=== PATIENT | female | born 1980 | race Caucasian/White ===

== ENCOUNTER → 2016-06-10 | Outpatient (CLI) | payer MEDICAID ==
[~2016-06-10] MED LIST: FURO20TA3 PO; LISI10TA6 PO; METO-169 PO; METO2.5T11 PO; SPIR25TA89 PO; TEMA30CA PO
[2016-06-10 11:12] LABS: INR 1.5 (0.7-1.3); Prothrombin Time 18.2 sec (9.0-12.0)
[2016-06-10 11:25] VITALS: BP 116/83
[2016-06-10 16:52] LABS: Potassium 3.6 mmol/L (3.5-5.1)
== END | disposition home or self-care (01) ==
LOC: CHF HDHVI 10:28
PROVIDERS: ATTEND Internal Medicine Cardiovascular Disease
DX: I50.9 Heart failure, unspecified (principal); Z79.899 Other long term (current) drug therapy
CPT/HCPCS: 36415; 82565; 84132; 84520; 85610; 93701; G0463

== ENCOUNTER → 2016-06-19 | Outpatient (CLI) | payer MEDICAID ==
[2016-06-19 11:31] LABS: INR 4.2 (0.7-1.3); Prothrombin Time 50.6 sec (9.0-12.0)
[2016-06-19 12:20] VITALS: BP 111/92
== END | disposition home or self-care (01) ==
LOC: CHF HDHVI 10:53
PROVIDERS: ATTEND Internal Medicine Cardiovascular Disease
DX: I11.0 Hypertensive heart disease with heart failure (principal); I25.10 Atherosclerotic heart disease of native coronary artery without angina pectoris; D64.9 Anemia, unspecified; R79.1 Abnormal coagulation profile
CPT/HCPCS: 85610; G0463

== ENCOUNTER → 2016-06-26 | Outpatient (CLI) | payer MEDICAID ==
[2016-06-26 10:05] VITALS: BP 98/77
[2016-06-26 12:21] LABS: INR 3.9 (0.7-1.3); Prothrombin Time 46.3 sec (9.0-12.0)
== END | disposition home or self-care (01) ==
LOC: CHF HDHVI 09:09
PROVIDERS: ATTEND Internal Medicine Cardiovascular Disease
DX: I11.0 Hypertensive heart disease with heart failure (principal); R79.1 Abnormal coagulation profile
CPT/HCPCS: 85610; G0463

== ENCOUNTER → 2016-07-03 | Outpatient (CLI) | payer MEDICAID ==
[2016-07-03 11:11] LABS: INR 2.5 (0.7-1.3); Prothrombin Time 29.6 sec (9.0-12.0)
[2016-07-03 11:15] VITALS: BP 120/73
== END | disposition home or self-care (01) ==
LOC: CHF HDHVI 10:26
PROVIDERS: ATTEND Internal Medicine Cardiovascular Disease
DX: I11.0 Hypertensive heart disease with heart failure (principal); I25.10 Atherosclerotic heart disease of native coronary artery without angina pectoris; R79.1 Abnormal coagulation profile; N28.9 Disorder of kidney and ureter, unspecified
CPT/HCPCS: 85610; G0463

== ENCOUNTER → 2016-07-10 | Outpatient (CLI) | payer MEDICAID ==
[2016-07-10 11:56] LABS: INR 1.8 (0.7-1.3); Prothrombin Time 21.6 sec (9.0-12.0)
[2016-07-10 12:10] VITALS: BP 125/83
[2016-07-10 16:15] LABS: Basophils # (auto) 0 uL; Basophils % (auto) 0.6 % (0.0-2.0); Eosinophils # (auto) 0.1 uL; Eosinophils % (auto) 1.3 % (0.0-7.0); Hematocrit 55.5 % (36.0-46.0); Hemoglobin 17.6 g/dL (12.2-16.2); Lymphocytes # (auto) 1.3 uL; Lymphocytes % (auto) 25.6 % (10.0-50.0); Mean Corpuscular Hemoglobin 30.8 pg (28.0-32.0); Mean Corpuscular Hgb Conc. 31.8 g/dL (32.0-36.0); Monocytes # (auto) 0.4 uL; Monocytes % (auto) 8.6 % (0.0-12.0); Neutrophils # (auto) 3.3 uL; Neutrophils % (auto) 63.9 % (37.0-80.0); Platelet Count (auto) 215 10^3/uL (140-450); Red Cell Distribution Width 14.5 % (11.6-16.0); White Blood Cell 5.1 10^3/uL (4.4-10.8)
[2016-07-10 16:31] LABS: Calcium 9.3 mg/dL (8.5-10.1); Potassium 3.5 mmol/L (3.5-5.1)
[2016-07-10 16:33] LABS: BUN/Creatinine Ratio 35.6
== END | disposition home or self-care (01) ==
LOC: CHF HDHVI 11:27
PROVIDERS: ATTEND Internal Medicine Cardiovascular Disease
DX: I10 Essential (primary) hypertension (principal); E83.40 Disorders of magnesium metabolism, unspecified; D64.9 Anemia, unspecified
CPT/HCPCS: 36415; 80048; 83735; 85025; 85610; 93701; G0463

== ENCOUNTER → 2016-07-18 | Outpatient (CLI) | payer MEDICAID ==
[2016-07-18 11:30] VITALS: BP 113/83
[2016-07-18 13:10] VITALS: BP 110/83
[2016-07-18 14:45] LABS: INR 1.9 (0.7-1.3); Prothrombin Time 22.3 sec (9.0-12.0)
== END | disposition home or self-care (01) ==
LOC: CHF HDHVI 11:43
PROVIDERS: ATTEND Internal Medicine Cardiovascular Disease
DX: I27.0 Primary pulmonary hypertension (principal); R79.1 Abnormal coagulation profile
CPT/HCPCS: 85610; 94620; G0463

== ENCOUNTER → 2016-07-24 | Outpatient (CLI) | payer MEDICAID ==
[2016-07-24 09:15] VITALS: BP 108/75
[2016-07-24 09:47] LABS: INR 1.8 (0.7-1.3); Prothrombin Time 21.6 sec (9.0-12.0)
[2016-07-24 10:05] VITALS: BP 126/79
== END | disposition home or self-care (01) ==
LOC: CHF HDHVI 09:23
PROVIDERS: ATTEND Internal Medicine Cardiovascular Disease
DX: I50.23 Acute on chronic systolic (congestive) heart failure (principal); I10 Essential (primary) hypertension; I25.10 Atherosclerotic heart disease of native coronary artery without angina pectoris; I26.99 Other pulmonary embolism without acute cor pulmonale; Z86.718 Personal history of other venous thrombosis and embolism; R79.1 Abnormal coagulation profile
CPT/HCPCS: 85610; G0463

== ENCOUNTER → 2016-07-31 | Outpatient (CLI) | payer MEDICAID ==
[~2016-07-31] MED LIST changes: +CYANOCOBALAMIN (B-12) 1000 MCG/1 ML VIAL IM ONE; +CYANOCOBALAMIN (B-12) 1000 MCG/1 ML VIAL ONE
[2016-07-31 09:15] VITALS: BP 107/86
[2016-07-31 09:51] LABS: INR 2.1 (0.7-1.3); Prothrombin Time 25.5 sec (9.0-12.0)
[2016-07-31 10:05] VITALS: BP 119/57
== END | disposition home or self-care (01) ==
LOC: CHF HDHVI 09:18
PROVIDERS: ATTEND Internal Medicine Cardiovascular Disease
DX: I50.23 Acute on chronic systolic (congestive) heart failure (principal); I25.10 Atherosclerotic heart disease of native coronary artery without angina pectoris; I10 Essential (primary) hypertension; D64.9 Anemia, unspecified; R79.1 Abnormal coagulation profile
CPT/HCPCS: 85610; 93701; 96372; G0463; J3420

== ENCOUNTER → 2016-08-07 | Outpatient (CLI) | payer MEDICAID ==
[~2016-08-07] MED LIST changes: -CYANOCOBALAMIN (B-12) 1000 MCG/1 ML VIAL IM ONE; -CYANOCOBALAMIN (B-12) 1000 MCG/1 ML VIAL ONE
[2016-08-07 11:10] VITALS: BP 110/69
[2016-08-07 11:57] LABS: INR 1.9 (0.7-1.3); Prothrombin Time 22.7 sec (9.0-12.0)
[2016-08-07 16:25] LABS: Basophils # (auto) 0 uL; Basophils % (auto) 0.6 % (0.0-2.0); Eosinophils # (auto) 0.1 uL; Hematocrit 52.3 % (36.0-46.0); Hemoglobin 17.5 g/dL (12.2-16.2); Lymphocytes # (auto) 1.4 uL; Lymphocytes % (auto) 22.2 % (10.0-50.0); Mean Corpuscular Hemoglobin 32.1 pg (28.0-32.0); Mean Corpuscular Hgb Conc. 33.4 g/dL (32.0-36.0); Mean Corpuscular Volume 96.3 fL (80.0-100.0); Mean Platelet Volume 9.7 fL (7.4-10.4); Monocytes # (auto) 0.6 uL; Monocytes % (auto) 9.8 % (0.0-12.0); Neutrophils # (auto) 4.1 uL; Neutrophils % (auto) 66.4 % (37.0-80.0); Platelet Count (auto) 251 10^3/uL (140-450); Red Cell Distribution Width 14.2 % (11.6-16.0); SUSPECT VIEW TRANSMISSION; White Blood Cell 6.2 10^3/uL (4.4-10.8)
[2016-08-07 16:40] LABS: Albumin 3.6 g/dL (3.4-5.0); BUN/Creatinine Ratio 26.7; Bilirubin, Total 1.4 mg/dL (0.2-1.0); Calcium 9.4 mg/dL (8.5-10.1); Magnesium 1.8 mg/dL (1.6-2.6); Total Protein 7.7 g/dL (6.4-8.2)
[2016-08-07 16:51] LABS: Potassium 2.8 mmol/L (3.5-5.1)
== END | disposition home or self-care (01) ==
LOC: CHF HDHVI 11:09
PROVIDERS: ATTEND Internal Medicine Cardiovascular Disease
DX: I10 Essential (primary) hypertension (principal); E83.40 Disorders of magnesium metabolism, unspecified; D64.9 Anemia, unspecified
CPT/HCPCS: 36415; 80053; 83735; 85025; 85610; G0463

== ENCOUNTER → 2016-08-22 | Outpatient (CLI) | payer MEDICAID ==
[2016-08-22 09:59] VITALS: BP 112/70
[2016-08-22 10:16] LABS: INR 1.4 (0.7-1.3); Prothrombin Time 17.2 sec (9.0-12.0)
[2016-08-22 12:42] LABS: Basophils # (auto) 0 uL; Eosinophils # (auto) 0 uL; Hemoglobin 16.5 g/dL (12.2-16.2); Lymphocytes # (auto) 1.4 uL; Mean Corpuscular Hemoglobin 31.9 pg (28.0-32.0); Mean Platelet Volume 9.5 fL (7.4-10.4); Monocytes # (auto) 0.5 uL; Neutrophils # (auto) 3.1 uL; White Blood Cell 5.1 10^3/uL (4.4-10.8)
[2016-08-22 12:50] LABS: B-Type Natriuretic Peptide 630.06 pg/mL (0-100); Temperature: 23.1 C (20.0-25.0)
[2016-08-22 12:53] LABS: Basophils % (auto) 0.8 % (0.0-2.0); Eosinophils % (auto) 0.9 % (0.0-7.0); Hematocrit 50.1 % (36.0-46.0); Lymphocytes % (auto) 27.4 % (10.0-50.0); Mean Corpuscular Volume 96.7 fL (80.0-100.0); Neutrophils % (auto) 60.9 % (37.0-80.0); Platelet Count (auto) 234 10^3/uL (140-450); Red Cell Distribution Width 14.5 % (11.6-16.0)
[2016-08-22 12:58] LABS: BUN/Creatinine Ratio 26.8; Calcium 9.4 mg/dL (8.5-10.1); Magnesium 2.2 mg/dL (1.6-2.6); Potassium 3.3 mmol/L (3.5-5.1)
== END | disposition home or self-care (01) ==
LOC: CHF HDHVI 09:34
PROVIDERS: ATTEND Internal Medicine Cardiovascular Disease
DX: I10 Essential (primary) hypertension (principal); I50.9 Heart failure, unspecified; Z79.899 Other long term (current) drug therapy; E83.40 Disorders of magnesium metabolism, unspecified; D64.9 Anemia, unspecified
CPT/HCPCS: 36415; 80048; 83735; 83880; 85025; 85610; G0463

== ENCOUNTER → 2016-08-28 | Outpatient (CLI) | payer MEDICAID ==
[2016-08-28 09:00] VITALS: BP 109/70
[2016-08-28 10:00] VITALS: BP 105/73
[2016-08-28 10:12] LABS: INR 1.9 (0.7-1.3); Prothrombin Time 23.2 sec (9.0-12.0)
[2016-08-28 12:40] LABS: BUN/Creatinine Ratio 28.9; Calcium 9.4 mg/dL (8.5-10.1); Potassium 3.3 mmol/L (3.5-5.1)
== END | disposition home or self-care (01) ==
LOC: CHF HDHVI 09:07
PROVIDERS: ATTEND Internal Medicine Cardiovascular Disease
DX: I11.0 Hypertensive heart disease with heart failure (principal); I50.9 Heart failure, unspecified; I25.10 Atherosclerotic heart disease of native coronary artery without angina pectoris; D64.9 Anemia, unspecified; R79.1 Abnormal coagulation profile; E78.2 Mixed hyperlipidemia; R06.02 Shortness of breath; Z95.0 Presence of cardiac pacemaker
CPT/HCPCS: 36415; 80048; 85610; 93701; 94620; G0463

== ENCOUNTER → 2016-09-04 | Outpatient (CLI) | payer MEDICAID ==
[~2016-09-04] MED LIST changes: +CYANOCOBALAMIN (B-12) 1000 MCG/1 ML VIAL IM ONE; +CYANOCOBALAMIN (B-12) 1000 MCG/1 ML VIAL ONE
[2016-09-04 09:15] VITALS: BP 104/79
[2016-09-04 11:00] VITALS: BP 106/82
[2016-09-04 14:41] LABS: INR 1.8 (0.7-1.3); Prothrombin Time 21.8 sec (9.0-12.0)
== END | disposition home or self-care (01) ==
LOC: CHF HDHVI 10:11
PROVIDERS: ATTEND Internal Medicine Cardiovascular Disease
DX: I11.0 Hypertensive heart disease with heart failure (principal); D64.9 Anemia, unspecified; I50.9 Heart failure, unspecified; I42.0 Dilated cardiomyopathy
CPT/HCPCS: 85610; 96372; G0463; J3420

== ENCOUNTER → 2016-09-11 | Outpatient (CLI) | payer MEDICAID ==
[2016-09-11 10:10] VITALS: BP 102/78
[2016-09-11 12:36] LABS: INR 1.8 (0.7-1.3); Prothrombin Time 21.9 sec (9.0-12.0)
== END | disposition home or self-care (01) ==
LOC: CHF HDHVI 09:37
PROVIDERS: ATTEND Internal Medicine Cardiovascular Disease
DX: Z32.00 Encounter for pregnancy test, result unknown (principal)
CPT/HCPCS: 36415; 84702; 85610; 96372; G0463

== ENCOUNTER → 2016-09-23 | Outpatient (CLI) | payer MEDICAID ==
[~2016-09-23] VITALS: Ht 30.5 cm; Wt 77.6 kg
[2016-09-23 11:10] VITALS: BP 110/84
[2016-09-23 13:46] LABS: INR 1.4 (0.7-1.3); Prothrombin Time 17.3 sec (9.0-12.0)
== END | disposition home or self-care (01) ==
LOC: Rad HDHVI 09:32
PROVIDERS: ATTEND Internal Medicine Cardiovascular Disease
DX: I11.0 Hypertensive heart disease with heart failure (principal); I50.23 Acute on chronic systolic (congestive) heart failure; I25.10 Atherosclerotic heart disease of native coronary artery without angina pectoris
CPT/HCPCS: 85610; 93306; 96372; G0463; J3420

== ENCOUNTER → 2016-10-02 | Outpatient (CLI) | payer MEDICAID ==
[2016-10-02 09:50] VITALS: BP 99/68
[2016-10-02 10:32] LABS: INR 1.7 (0.7-1.3); Prothrombin Time 20.6 sec (9.0-12.0)
[2016-10-02 13:29] LABS: B-Type Natriuretic Peptide 393.69 pg/mL (0-100); Temperature: 23.4 C (20.0-25.0)
== END | disposition home or self-care (01) ==
LOC: CHF HDHVI 09:14
PROVIDERS: ATTEND Internal Medicine Cardiovascular Disease
DX: I50.9 Heart failure, unspecified (principal); E87.6 Hypokalemia
CPT/HCPCS: 36415; 83880; 84132; 85610; 96372; G0463

== ENCOUNTER → 2016-10-09 | Outpatient (CLI) | payer MEDICAID ==
[~2016-10-09] VITALS: Ht 1 cm; Wt 0.5 kg
[2016-10-09 10:30] VITALS: BP 92/67
[2016-10-09 11:12] LABS: INR 1.1 (0.7-1.3); Prothrombin Time 12.8 sec (9.0-12.0)
[2016-10-09 12:18] LABS: Basophils # (auto) 0.1 uL; Basophils % (auto) 0.8 % (0.0-2.0); Eosinophils # (auto) 0.1 uL; Eosinophils % (auto) 1.4 % (0.0-7.0); Hematocrit 51.4 % (36.0-46.0); Hemoglobin 17.1 g/dL (12.2-16.2); Lymphocytes # (auto) 1.4 uL; Lymphocytes % (auto) 20.5 % (10.0-50.0); Mean Corpuscular Hemoglobin 32.7 pg (28.0-32.0); Mean Corpuscular Hgb Conc. 33.2 g/dL (32.0-36.0); Mean Corpuscular Volume 98.4 fL (80.0-100.0); Mean Platelet Volume 9.6 fL (7.4-10.4); Monocytes # (auto) 0.6 uL; Monocytes % (auto) 9.6 % (0.0-12.0); Neutrophils # (auto) 4.6 uL; Neutrophils % (auto) 67.7 % (37.0-80.0); Platelet Count (auto) 277 10^3/uL (140-450); Red Cell Distribution Width 13.6 % (11.6-16.0); White Blood Cell 6.8 10^3/uL (4.4-10.8)
[2016-10-09 13:01] LABS: Albumin 3.5 g/dL (3.4-5.0); BUN/Creatinine Ratio 30.6; Calcium 9.6 mg/dL (8.5-10.1); Potassium 3.2 mmol/L (3.5-5.1); Total Protein 7.5 g/dL (6.4-8.2)
== END | disposition home or self-care (01) ==
LOC: CHF HDHVI 09:13
PROVIDERS: ATTEND Internal Medicine Cardiovascular Disease
DX: I10 Essential (primary) hypertension (principal); D64.9 Anemia, unspecified
CPT/HCPCS: 36415; 80053; 85025; 85610; 93701; 96372; G0463

== ENCOUNTER → 2016-10-16 | Outpatient (CLI) | payer MEDICAID ==
[~2016-10-16] MED LIST changes: -CYANOCOBALAMIN (B-12) 1000 MCG/1 ML VIAL IM ONE; -CYANOCOBALAMIN (B-12) 1000 MCG/1 ML VIAL ONE
[2016-10-16 09:50] VITALS: BP 104/81
[2016-10-16 09:55] VITALS: BP 105/78
[2016-10-17 07:37] LABS: INR 1.1 (0.7-1.3); Prothrombin Time 13.5 sec (9.0-12.0)
== END | disposition home or self-care (01) ==
LOC: CHF HDHVI 09:22
PROVIDERS: ATTEND Internal Medicine Cardiovascular Disease
DX: I50.9 Heart failure, unspecified (principal)
CPT/HCPCS: 85610; G0463

== ENCOUNTER → 2016-10-23 | Outpatient (CLI) | payer MEDICAID ==
[~2016-10-23] MED LIST changes: +CYANOCOBALAMIN (B-12) 1000 MCG/1 ML VIAL IM ONE; +CYANOCOBALAMIN (B-12) 1000 MCG/1 ML VIAL ONE; +KETOROLAC TROMETH 60MG/2ML VIAL IM ONE; +POTASSIUM CHL 20 Meq TABLET PO ONE; +POTASSIUM CHL 20 Meq TABLET PO SCH
[2016-10-23 10:15] VITALS: BP 103/78
[2016-10-23 10:50] VITALS: BP 109/72
[2016-10-23 11:57] LABS: INR 1.6 (0.7-1.3); Prothrombin Time 19.6 sec (9.0-12.0)
[2016-10-23 13:01] LABS: Magnesium 2.2 mg/dL (1.6-2.6); Potassium 3.3 mmol/L (3.5-5.1)
[2016-10-23 13:17] LABS: B-Type Natriuretic Peptide 417.44 pg/mL (0-100); Temperature: 24.1 C (20.0-25.0)
== END | disposition home or self-care (01) ==
LOC: CHF HDHVI 10:16
PROVIDERS: ATTEND Internal Medicine Cardiovascular Disease
DX: E87.6 Hypokalemia (principal); I50.9 Heart failure, unspecified; E83.42 Hypomagnesemia
CPT/HCPCS: 36415; 83735; 83880; 84132; 85610; G0463; J1885

== ENCOUNTER → 2016-10-30 | Outpatient (CLI) | payer MEDICAID ==
[~2016-10-30] MED LIST changes: -KETOROLAC TROMETH 60MG/2ML VIAL IM ONE; +POTASSIUM CHL 10 Meq TABLET PO ONE; -POTASSIUM CHL 20 Meq TABLET PO ONE; -POTASSIUM CHL 20 Meq TABLET PO SCH
[2016-10-30 09:30] VITALS: BP 104/67
[2016-10-30] MEDS: POTASSIUM CHL 10 Meq TABLET PO SCH ×2 (10:00→10:15)
[2016-10-30 12:58] LABS: B-Type Natriuretic Peptide 267.86 pg/mL (0-100); Temperature: 23.7 C (20.0-25.0)
[2016-10-30 14:12] LABS: Potassium 2.9 mmol/L (3.5-5.1)
[2016-10-30 16:12] LABS: Prothrombin Time 24.2 sec (9.0-12.0)
== END | disposition home or self-care (01) ==
LOC: CHF HDHVI 09:35
PROVIDERS: ATTEND Internal Medicine Cardiovascular Disease
DX: R94.4 Abnormal results of kidney function studies (principal); E87.6 Hypokalemia; E55.9 Vitamin D deficiency, unspecified
CPT/HCPCS: 36415; 82306; 82565; 83880; 84132; 84520; 85610; 94620; 96372; G0463

== ENCOUNTER → 2016-11-04 | Outpatient (CLI) | payer MEDICAID ==
[~2016-11-04] MED LIST changes: -CYANOCOBALAMIN (B-12) 1000 MCG/1 ML VIAL IM ONE; -CYANOCOBALAMIN (B-12) 1000 MCG/1 ML VIAL ONE; -POTASSIUM CHL 10 Meq TABLET PO ONE
[2016-11-04 09:05] VITALS: BP 119/68
[2016-11-04 09:30] VITALS: BP 102/68
[2016-11-04 09:57] LABS: INR 1.8 (0.7-1.3); Prothrombin Time 21.7 sec (9.0-12.0)
[2016-11-04 12:44] LABS: Potassium 2.9 mmol/L (3.5-5.1)
== END | disposition home or self-care (01) ==
LOC: CHF HDHVI 09:18
PROVIDERS: ATTEND Internal Medicine Cardiovascular Disease
DX: R94.4 Abnormal results of kidney function studies (principal); E87.6 Hypokalemia
CPT/HCPCS: 36415; 82565; 84132; 84520; 85610; G0463

== ENCOUNTER → 2016-12-04 | Outpatient (CLI) | payer MEDICAID ==
[~2016-12-04] MED LIST changes: +CYANOCOBALAMIN (B-12) 1000 MCG/1 ML VIAL IM ONE; +CYANOCOBALAMIN (B-12) 1000 MCG/1 ML VIAL ONE
[2016-12-04 10:40] VITALS: BP 103/75
[2016-12-04 11:16] LABS: INR 1.3 (0.7-1.3)
[2016-12-04 13:20] LABS: Albumin 3.9 g/dL (3.4-5.0); BUN/Creatinine Ratio 21.1; Bilirubin, Total 0.8 mg/dL (0.2-1.0); Calcium 9.2 mg/dL (8.5-10.1); Magnesium 2.3 mg/dL (1.6-2.6); Potassium 3.3 mmol/L (3.5-5.1); Total Protein 7.7 g/dL (6.4-8.2)
[2016-12-04 13:22] LABS: Basophils # (auto) 0 uL; Basophils % (auto) 0.6 % (0.0-2.0); CONDITION Y; Eosinophils # (auto) 0.1 uL; Eosinophils % (auto) 1.6 % (0.0-7.0); Hematocrit 50.4 % (36.0-46.0); Hemoglobin 17.1 g/dL (12.2-16.2); Lymphocytes # (auto) 1.6 uL; Lymphocytes % (auto) 26.5 % (10.0-50.0); Mean Corpuscular Hemoglobin 33.4 pg (28.0-32.0); Mean Corpuscular Hgb Conc. 33.9 g/dL (32.0-36.0); Mean Corpuscular Volume 98.5 fL (80.0-100.0); Mean Platelet Volume 9.6 fL (7.4-10.4); Monocytes # (auto) 0.6 uL; Monocytes % (auto) 9.2 % (0.0-12.0); Neutrophils # (auto) 3.8 uL; Neutrophils % (auto) 62.1 % (37.0-80.0); Platelet Count (auto) 255 10^3/uL (140-450); Red Cell Distribution Width 13.9 % (11.6-16.0); SUSPECT SEE PRINTOUT; White Blood Cell 6.2 10^3/uL (4.4-10.8)
[2016-12-04 13:33] LABS: B-Type Natriuretic Peptide 363.24 pg/mL (0-100)
[2016-12-04 13:52] LABS: Temperature: 23.5 C (20.0-25.0)
== END | disposition home or self-care (01) ==
LOC: CHF HDHVI 09:18
PROVIDERS: ATTEND Internal Medicine Cardiovascular Disease
DX: I11.0 Hypertensive heart disease with heart failure (principal); I50.9 Heart failure, unspecified; E83.42 Hypomagnesemia; D64.9 Anemia, unspecified; R53.83 Other fatigue; J44.9 Chronic obstructive pulmonary disease, unspecified; Z79.01 Long term (current) use of anticoagulants; Z79.899 Other long term (current) drug therapy
CPT/HCPCS: 36415; 80053; 83735; 83880; 85025; 85610; 93701; 94620; 96372; G0463; J3420

== ENCOUNTER → 2017-01-01 | Outpatient (CLI) | payer MEDICAID ==
[2017-01-01 08:55] VITALS: BP 131/82
[2017-01-01 10:00] VITALS: BP 107/80
[2017-01-01 15:32] LABS: INR 1.1 (0.7-1.3); Prothrombin Time 12.9 sec (9.0-12.0)
== END | disposition home or self-care (01) ==
LOC: CHF HDHVI 08:54
PROVIDERS: ATTEND Internal Medicine Cardiovascular Disease
DX: I25.5 Ischemic cardiomyopathy (principal); I27.0 Primary pulmonary hypertension; I50.9 Heart failure, unspecified; D64.9 Anemia, unspecified; E87.70 Fluid overload, unspecified; R79.1 Abnormal coagulation profile
CPT/HCPCS: 85610; 93701; 96374; G0463; J3420

== ENCOUNTER → 2017-01-08 | Outpatient (CLI) | payer MEDICAID ==
[~2017-01-08] MED LIST changes: +LISI-275 PO; +POTA10TA34 PO; +RIOC1TAB7 PO; +WARF5TAB PO
[2017-01-08 12:10] VITALS: BP 128/92
[2017-01-08 13:57] LABS: INR 1.1 (0.7-1.3); Prothrombin Time 13.6 sec (9.0-12.0)
[2017-01-08 17:10] LABS: Basophils # (auto) 0.1 uL; Basophils % (auto) 0.9 % (0.0-2.0); CONDITION Y; Eosinophils # (auto) 0.1 uL; Eosinophils % (auto) 1.1 % (0.0-7.0); Hemoglobin 15.7 g/dL (12.2-16.2); Lymphocytes # (auto) 1.9 uL; Lymphocytes % (auto) 27.2 % (10.0-50.0); Mean Corpuscular Hemoglobin 34.5 pg (28.0-32.0); Mean Corpuscular Hgb Conc. 34.2 g/dL (32.0-36.0); Mean Platelet Volume 9.4 fL (7.4-10.4); Monocytes # (auto) 0.4 uL; Neutrophils # (auto) 4.5 uL; Neutrophils % (auto) 64.8 % (37.0-80.0); Platelet Count (auto) 299 10^3/uL (140-450); Red Cell Distribution Width 15.9 % (11.6-16.0)
[2017-01-08 17:42] LABS: Albumin 3.7 g/dL (3.4-5.0); BUN/Creatinine Ratio 28.2; Calcium 8.7 mg/dL (8.5-10.1); Magnesium 2.1 mg/dL (1.6-2.6)
== END | disposition home or self-care (01) ==
LOC: CHF HDHVI 11:06
PROVIDERS: ATTEND Internal Medicine Cardiovascular Disease
DX: I11.0 Hypertensive heart disease with heart failure (principal); I50.9 Heart failure, unspecified; I73.9 Peripheral vascular disease, unspecified; E83.42 Hypomagnesemia; D64.9 Anemia, unspecified; Z86.718 Personal history of other venous thrombosis and embolism
CPT/HCPCS: 36415; 80053; 83735; 85025; 85610; 96372; G0463; J3420

== ENCOUNTER → 2017-01-22 | Outpatient (CLI) | payer MEDICAID ==
[~2017-01-22] VITALS: Ht 30.5 cm; Wt 0.5 kg
[~2017-01-22] MED LIST changes: -LISI10TA6 PO; -METO-169 PO
[2017-01-22 09:47] LABS: INR 1.3 (0.7-1.3); Prothrombin Time 15.2 sec (9.0-12.0)
[2017-01-22 10:15] VITALS: BP 112/82
[2017-01-22 12:46] LABS: BUN/Creatinine Ratio 18.4; Calcium 9.1 mg/dL (8.5-10.1); Magnesium 2.1 mg/dL (1.6-2.6); Potassium 3.1 mmol/L (3.5-5.1)
[2017-01-22 16:50] LABS: Basophils # (auto) 0.1 uL; CONDITION Y; DEFINITIVE SEE PRINTOUT; Eosinophils # (auto) 0.1 uL; Eosinophils % (auto) 1.5 % (0.0-7.0); Hemoglobin 16.6 g/dL (12.2-16.2); Lymphocytes # (auto) 1.5 uL; Lymphocytes % (auto) 24.1 % (10.0-50.0); Mean Corpuscular Hgb Conc. 33.1 g/dL (32.0-36.0); Mean Corpuscular Volume 102.7 fL (80.0-100.0); Mean Platelet Volume 9.1 fL (7.4-10.4); Monocytes # (auto) 0.6 uL; Neutrophils # (auto) 3.8 uL; Neutrophils % (auto) 63.4 % (37.0-80.0); Platelet Count (auto) 312 10^3/uL (140-450); Red Cell Distribution Width 15.5 % (11.6-16.0); White Blood Cell 6.1 10^3/uL (4.4-10.8)
== END | disposition home or self-care (01) ==
LOC: CHF HDHVI 09:28
PROVIDERS: ATTEND Internal Medicine Cardiovascular Disease
DX: D64.9 Anemia, unspecified (principal); E83.42 Hypomagnesemia; I11.0 Hypertensive heart disease with heart failure; I50.33 Acute on chronic diastolic (congestive) heart failure
CPT/HCPCS: 36415; 80048; 83735; 85025; 85610; 94620; 96372; G0463; J3420

== ENCOUNTER → 2017-01-29 | Outpatient (CLI) | payer MEDICAID ==
[~2017-01-29] MED LIST changes: -CYANOCOBALAMIN (B-12) 1000 MCG/1 ML VIAL IM ONE; -CYANOCOBALAMIN (B-12) 1000 MCG/1 ML VIAL ONE
[2017-01-29 10:25] VITALS: BP 102/77
[2017-01-29 11:00] VITALS: BP 102/77
[2017-01-29 16:32] LABS: INR 1.3 (0.7-1.3); Prothrombin Time 15.3 sec (9.0-12.0)
== END | disposition home or self-care (01) ==
LOC: CHF HDHVI 10:25
PROVIDERS: ATTEND Internal Medicine Cardiovascular Disease
DX: I50.9 Heart failure, unspecified (principal)
CPT/HCPCS: 85610; G0463

== ENCOUNTER → 2017-02-12 | Outpatient (CLI) | payer MEDICAID ==
[~2017-02-12] MED LIST changes: +CYANOCOBALAMIN (B-12) 1000 MCG/1 ML VIAL IM ONE; +CYANOCOBALAMIN (B-12) 1000 MCG/1 ML VIAL ONE
[2017-02-12 10:20] VITALS: BP 110/70
[2017-02-12 10:47] LABS: INR 1.7 (0.7-1.3); Prothrombin Time 20.9 sec (9.0-12.0)
[2017-02-12 12:15] VITALS: BP 120/76
== END | disposition home or self-care (01) ==
LOC: CHF HDHVI 10:34
PROVIDERS: ATTEND Internal Medicine Cardiovascular Disease
DX: R19.5 Other fecal abnormalities (principal); I50.32 Chronic diastolic (congestive) heart failure
CPT/HCPCS: 82270; 85610; 96372; G0463; J3420

== ENCOUNTER → 2017-02-16 | Outpatient (CLI) | payer MEDICAID ==
[~2017-02-16] MED LIST changes: -CYANOCOBALAMIN (B-12) 1000 MCG/1 ML VIAL IM ONE; -CYANOCOBALAMIN (B-12) 1000 MCG/1 ML VIAL ONE
[2017-02-16 12:15] VITALS: BP 111/75
[2017-02-16 14:07] LABS: INR 1.5 (0.7-1.3); Prothrombin Time 17.9 sec (9.0-12.0)
== END | disposition home or self-care (01) ==
LOC: CHF HDHVI 11:38
PROVIDERS: ATTEND Internal Medicine Cardiovascular Disease
DX: I50.9 Heart failure, unspecified (principal)
CPT/HCPCS: 85610

== ENCOUNTER → 2017-02-26 | Outpatient (CLI) | payer MEDICAID ==
[2017-02-26 09:45] VITALS: BP 107/74
[2017-02-26 10:45] VITALS: BP 112/82
[2017-02-26 12:20] LABS: Basophils # (auto) 0.1 uL; Basophils % (auto) 1.3 % (0.0-2.0); Eosinophils # (auto) 0.1 uL; Eosinophils % (auto) 1.7 % (0.0-7.0); Hematocrit 44.7 % (36.0-46.0); Hemoglobin 15.1 g/dL (12.2-16.2); Lymphocytes # (auto) 1.6 uL; Lymphocytes % (auto) 28.8 % (10.0-50.0); Mean Corpuscular Hemoglobin 34.4 pg (28.0-32.0); Mean Corpuscular Hgb Conc. 33.9 g/dL (32.0-36.0); Mean Corpuscular Volume 101.4 fL (80.0-100.0); Mean Platelet Volume 9.1 fL (6.9-10.8); Monocytes # (auto) 0.4 uL; Monocytes % (auto) 6.5 % (0.0-12.0); Neutrophils # (auto) 3.4 uL; Neutrophils % (auto) 61.7 % (37.0-80.0); Nucleated Red Blood Cells % 0.5 %; Platelet Count (auto) 257 10^3/uL (140-450); Red Cell Distribution Width 14.4 % (11.8-14.3); White Blood Cell 5.5 10^3/uL (4.4-10.8)
[2017-02-26 12:26] LABS: Urine Bilirubin Negative (Negative); Urine Blood 2+ /uL (Negative); Urine Color Yellow (Yellow); Urine Glucose Normal (Normal); Urine Ketone Negative (Negative); Urine Mucus FEW (None Seen); Urine Nitrite POSITIVE (Negative); Urine RBC 161 /hpf (0 - 4); Urine Squamous Epithelial Cell FEW /hpf (<5); Urine pH 5.5 (5.0-8.0)
[2017-02-26 12:30] LABS: BUN/Creatinine Ratio 22.1; Calcium 9.2 mg/dL (8.5-10.1); Magnesium 2.2 mg/dL (1.6-2.6); Potassium 3.4 mmol/L (3.5-5.1)
[2017-02-26 15:37] LABS: INR 1.9 (0.7-1.3); Prothrombin Time 22.8 sec (9.0-12.0)
== END | disposition home or self-care (01) ==
LOC: CHF HDHVI 09:27
PROVIDERS: ATTEND Internal Medicine Cardiovascular Disease
DX: I11.0 Hypertensive heart disease with heart failure (principal); I50.9 Heart failure, unspecified; D64.9 Anemia, unspecified; N39.0 Urinary tract infection, site not specified; I25.10 Atherosclerotic heart disease of native coronary artery without angina pectoris; J44.9 Chronic obstructive pulmonary disease, unspecified
CPT/HCPCS: 36415; 80048; 81001; 83735; 85025; 85610; 87086; 93005; 93701; G0463

== ENCOUNTER → 2017-03-05 | Outpatient (CLI) | payer MEDICAID ==
[2017-03-05 10:50] VITALS: BP 99/70
[2017-03-05 11:06] LABS: INR 1.4 (0.7-1.3); Prothrombin Time 16.8 sec (9.0-12.0)
[2017-03-05 11:30] VITALS: BP 96/64
== END | disposition home or self-care (01) ==
LOC: CHF HDHVI 10:44
PROVIDERS: ATTEND Internal Medicine Cardiovascular Disease
DX: I50.9 Heart failure, unspecified (principal); Z79.01 Long term (current) use of anticoagulants
CPT/HCPCS: 85610; G0463

== ENCOUNTER → 2017-03-19 | Outpatient (CLI) | payer MEDICAID ==
[~2017-03-19] MED LIST changes: +CYANOCOBALAMIN (B-12) 1000 MCG/1 ML VIAL ONE; +CYANOCOBALAMIN (B-12) 1000 MCG/1 ML VIAL SUBCUT ONE
[2017-03-19 09:15] VITALS: BP 110/73
[2017-03-19 09:50] VITALS: BP 109/80
[2017-03-19 10:07] LABS: INR 2.1 (0.7-1.3); Prothrombin Time 25.4 sec (9.0-12.0)
[2017-03-19 15:18] LABS: Basophils # (auto) 0 uL; Basophils % (auto) 0.6 % (0.0-2.0); Eosinophils # (auto) 0.1 uL; Eosinophils % (auto) 1.8 % (0.0-7.0); Hematocrit 47.8 % (36.0-46.0); Lymphocytes # (auto) 1.6 uL; Lymphocytes % (auto) 30.9 % (10.0-50.0); Mean Corpuscular Hgb Conc. 33.5 g/dL (32.0-36.0); Mean Corpuscular Volume 101.5 fL (80.0-100.0); Monocytes # (auto) 0.4 uL; Monocytes % (auto) 8.6 % (0.0-12.0); Neutrophils % (auto) 58.1 % (37.0-80.0); Nucleated Red Blood Cells % 1.1 %; Platelet Count (auto) 260 10^3/uL (140-450); Red Cell Distribution Width 14.3 % (11.8-14.3); White Blood Cell 5.1 10^3/uL (4.4-10.8)
[2017-03-19 15:38] LABS: BUN/Creatinine Ratio 20.8; Calcium 8.9 mg/dL (8.5-10.1); Magnesium 2.2 mg/dL (1.6-2.6); Potassium 3.5 mmol/L (3.5-5.1)
[2017-03-19 15:49] LABS: B-Type Natriuretic Peptide 513.01 pg/mL (0-100)
[2017-03-19 16:19] LABS: Temperature: 22.7 C (20.0-25.0)
== END | disposition home or self-care (01) ==
LOC: CHF HDHVI 09:19
PROVIDERS: ATTEND Internal Medicine Cardiovascular Disease
DX: I11.0 Hypertensive heart disease with heart failure (principal); I50.9 Heart failure, unspecified; E83.42 Hypomagnesemia; D64.9 Anemia, unspecified
CPT/HCPCS: 36415; 80048; 83735; 83880; 85025; 85610; 96372; G0463; J3420

== ENCOUNTER → 2017-04-03 | Outpatient (CLI) | payer MEDICAID ==
[~2017-04-03] MED LIST changes: -CYANOCOBALAMIN (B-12) 1000 MCG/1 ML VIAL ONE; -CYANOCOBALAMIN (B-12) 1000 MCG/1 ML VIAL SUBCUT ONE
[2017-04-03 11:30] VITALS: BP 110/68
== END | disposition home or self-care (01) ==
LOC: CHF HDHVI 10:01
PROVIDERS: ATTEND Internal Medicine Cardiovascular Disease
DX: Z32.00 Encounter for pregnancy test, result unknown (principal); I50.9 Heart failure, unspecified; J44.9 Chronic obstructive pulmonary disease, unspecified; J45.998 Other asthma
CPT/HCPCS: 36415; 84702

== ENCOUNTER 2017-04-09 09:43 | Inpatient (IN) | payer MEDICAID ==
[~2017-04-09] VITALS: Ht 170.2 cm; Wt 80.3 kg
[2017-04-09 10:55] LABS: Basophils # (auto) 0.1 uL; Eosinophils # (auto) 0.1 uL; Eosinophils % (auto) 1.1 % (0.0-7.0); Hematocrit 48.1 % (36.0-46.0); Hemoglobin 16.4 g/dL (12.2-16.2); Lymphocytes % (auto) 33.8 % (10.0-50.0); Mean Corpuscular Hemoglobin 33.7 pg (28.0-32.0); Monocytes # (auto) 0.5 uL; Monocytes % (auto) 7.9 % (0.0-12.0); Neutrophils # (auto) 3.2 uL; Neutrophils % (auto) 55.2 % (37.0-80.0); Nucleated Red Blood Cells % 0.1 %; Platelet Count (auto) 265 10^3/uL (140-450); Red Blood Cells 4.86 10^6/uL (4.0-5.20); Red Cell Distribution Width 14.1 % (11.8-14.3); White Blood Cell 5.9 10^3/uL (4.4-10.8)
[2017-04-09] MEDS ORDERED: ONDANSETRON HCL 4 MG/2 ML VIAL IV ONE (11:00)
[2017-04-09] MEDS ORDERED: HYDROmorphone HCL 2 MG/ML VL IV ONE (11:00)
[2017-04-09 11:36] LABS: Albumin 4.1 g/dL (3.4-5.0); BUN/Creatinine Ratio 19.5; Bilirubin, Total 1.2 mg/dL (0.2-1.0); Calcium 9.4 mg/dL (8.5-10.1); Potassium 3.7 mmol/L (3.5-5.1); Total Protein 7.9 g/dL (6.4-8.2)
[2017-04-09 11:49] LABS: INR 1.16 (0.9-1.15); Partial Thromboplastin Time 27.5 sec (22.64-33.71); Prothrombin Time 12.7 sec (9.37-12.3)
[2017-04-09] MEDS ORDERED: DOBUTamine 1000MCG/ML 250 ML IV ONE (17:45)
[2017-04-09] MEDS ORDERED: NITROGLYCERIN 0.4 MG SL TAB SL PRN (17:45)
[2017-04-09] MEDS ORDERED: MORPHINE SULFATE 10 MG/ML INJ 1ML SDV IV PRN (17:45)
[2017-04-09 18:24] LABS: Basophils # (auto) 0.1 uL; Basophils % (auto) 1.3 % (0.0-2.0); Eosinophils # (auto) 0.1 uL; Eosinophils % (auto) 1.8 % (0.0-7.0); Hematocrit 44.6 % (36.0-46.0); Lymphocytes # (auto) 1.7 uL; Lymphocytes % (auto) 33.2 % (10.0-50.0); Mean Corpuscular Hemoglobin 33.7 pg (28.0-32.0); Mean Corpuscular Hgb Conc. 33.7 g/dL (32.0-36.0); Mean Corpuscular Volume 100.1 fL (80.0-100.0); Monocytes # (auto) 0.4 uL; Monocytes % (auto) 7.9 % (0.0-12.0); Neutrophils # (auto) 2.9 uL; Neutrophils % (auto) 55.8 % (37.0-80.0); Nucleated Red Blood Cells % 0.2 %; Platelet Count (auto) 244 10^3/uL (140-450); Red Blood Cells 4.46 10^6/uL (4.0-5.20); Red Cell Distribution Width 14.1 % (11.8-14.3); White Blood Cell 5.3 10^3/uL (4.4-10.8)
[2017-04-09] MEDS: FUROSEMIDE INJECTION 100 MG in SODIUM CHL 0.9% 90 ML IV ONE ×2 (18:30→20:30)
[2017-04-09 18:39] LABS: BUN/Creatinine Ratio 19.3; Calcium 8.8 mg/dL (8.5-10.1); Potassium 3.3 mmol/L (3.5-5.1)
[2017-04-09 18:45] LABS: INR 1.19 (0.9-1.15); Partial Thromboplastin Time 28.3 sec (22.64-33.71)
[2017-04-09] MEDS: POTASSIUM CHL 20 Meq TABLET PO SCH (22:15)
[2017-04-10 06:05] LABS: Urine Bacteria NONE SEEN /hpf (None Seen); Urine Blood Negative /uL (Negative); Urine WBC 2 /hpf (0 - 5)
[2017-04-10 06:12] LABS: Alcohol, Urine < 3.0 mg/dL (0-5); Amphetamine Screen, Urine POSITIVE (NEGATIVE); Barbiturate Scree,Urine NEGATIVE (NEGATIVE); Benzodiazephine Screen, Urine NEGATIVE (NEGATIVE); Cannabinoid Screen, Urine POSITIVE (NEGATIVE); Cocaine Screen, Urine NEGATIVE (NEGATIVE); Opiate Scree,Urine NEGATIVE (NEGATIVE); Phencyclidine Screen, Urine NEGATIVE (NEGATIVE)
[2017-04-10] MEDS: POTASSIUM CHL 20 Meq TABLET PO SCH (10:49)
[2017-04-10 12:30] VITALS: BP 104/53
[2017-04-10] MEDS ORDERED: IOHEXOL 350 MG/ML 100ML IJ ONE (13:18)
[2017-04-10] MEDS ORDERED: LIDOCAINE 2%HCL (LOCAL ANESTH.) INJ 20ML MDV ONE ×2 (13:18→14:49)
[2017-04-10] MEDS ORDERED: fentaNYL CITRATE 100 MCG/2 ML VL ONE (14:36)
[2017-04-10] MEDS ORDERED: MIDAZOLAM HCL 1MG/1ML-2 ML VIAL ONE (14:37)
== END 2017-04-10 16:25 | disposition home or self-care (01) | DRG 192 ==
LOC: ER 09:43 → TELE 09:44
PROVIDERS: ADMIT Internal Medicine Cardiovascular Disease; ATTEND Internal Medicine Cardiovascular Disease
PROC: 4A023N8 Measurement of Cardiac Sampling and Pressure, Bilateral, Percutaneous Approach (ICD-10-PCS; principal; 2017-04-10)
PROC: B2111ZZ Fluoroscopy of Multiple Coronary Arteries using Low Osmolar Contrast (ICD-10-PCS; 2017-04-10)
PROC: B2151ZZ Fluoroscopy of Left Heart using Low Osmolar Contrast (ICD-10-PCS; 2017-04-10)
DX: I11.0 Hypertensive heart disease with heart failure (principal); I42.0 Dilated cardiomyopathy; I27.20 Pulmonary hypertension, unspecified; I50.23 Acute on chronic systolic (congestive) heart failure; F15.90 Other stimulant use, unspecified, uncomplicated; T43.625A Adverse effect of amphetamines, initial encounter; F17.210 Nicotine dependence, cigarettes, uncomplicated; F41.9 Anxiety disorder, unspecified; J44.9 Chronic obstructive pulmonary disease, unspecified; F32.9 Major depressive disorder, single episode, unspecified; Z86.711 Personal history of pulmonary embolism; Z87.440 Personal history of urinary (tract) infections; Z98.51 Tubal ligation status; Z95.810 Presence of automatic (implantable) cardiac defibrillator; Y92.89 Other specified places as the place of occurrence of the external cause; Z79.01 Long term (current) use of anticoagulants; Z79.899 Other long term (current) drug therapy; Z80.9 Family history of malignant neoplasm, unspecified; Z83.3 Family history of diabetes mellitus; Z82.49 Family history of ischemic heart disease and other diseases of the circulatory system
CPT/HCPCS: 36415; 71020; 80048; 80053; 80307; 81001; 83735; 83880; 84443; 84484; 85025; 85379; 85610; 85730; 86850; 86900; 86901; 93005; 93460; 93566; 96365; 96375; 99152; 99153; 99291; J2250; J2405

== ENCOUNTER → 2017-05-06 | Outpatient (CLI) | payer MEDICAID ==
[~2017-05-06] MED LIST changes: +CYANOCOBALAMIN (B-12) 1000 MCG/1 ML VIAL IM ONE; +CYANOCOBALAMIN (B-12) 1000 MCG/1 ML VIAL ONE
[2017-05-06 11:06] VITALS: BP 122/77
[2017-05-06 12:02] VITALS: BP 126/88
[2017-05-06 12:52] LABS: INR 1.3 (0.7-1.3); Prothrombin Time 16.2 sec (9.0-12.0)
[2017-05-06 16:02] LABS: Basophils # (auto) 0.1 uL; Basophils % (auto) 1.7 % (0.0-2.0); Eosinophils # (auto) 0.1 uL; Eosinophils % (auto) 1.4 % (0.0-7.0); Hematocrit 47.6 % (36.0-46.0); Hemoglobin 16.3 g/dL (12.2-16.2); Lymphocytes # (auto) 1.5 uL; Lymphocytes % (auto) 26.2 % (10.0-50.0); Mean Corpuscular Hemoglobin 34.1 pg (28.0-32.0); Mean Corpuscular Hgb Conc. 34.3 g/dL (32.0-36.0); Mean Corpuscular Volume 99.3 fL (80.0-100.0); Monocytes # (auto) 0.6 uL; Monocytes % (auto) 9.7 % (0.0-12.0); Neutrophils # (auto) 3.5 uL; Nucleated Red Blood Cells % 0.1 %; Platelet Count (auto) 265 10^3/uL (140-450); Red Cell Distribution Width 14.2 % (11.8-14.3); White Blood Cell 5.8 10^3/uL (4.4-10.8)
[2017-05-06 16:16] LABS: Albumin 3.9 g/dL (3.4-5.0); BUN/Creatinine Ratio 28.4; Bilirubin, Total 0.6 mg/dL (0.2-1.0); Magnesium 2.1 mg/dL (1.6-2.6); Potassium 3.6 mmol/L (3.5-5.1); Total Protein 7.3 g/dL (6.4-8.2)
== END | disposition home or self-care (01) ==
LOC: CHF HDHVI 11:12
PROVIDERS: ATTEND Internal Medicine Cardiovascular Disease
DX: E83.42 Hypomagnesemia (principal); D64.9 Anemia, unspecified; I10 Essential (primary) hypertension; I50.9 Heart failure, unspecified; R53.81 Other malaise; R53.83 Other fatigue
CPT/HCPCS: 36415; 80053; 83735; 85025; 85610; 96372; G0463; J3420

== ENCOUNTER → 2017-10-20 | Outpatient (CLI) | payer MEDICAID ==
[~2017-10-20] MED LIST changes: +BENZ100C97 PO; +MACI1TAB2 PO; +POM PO; +POTA8TAB2 PO; +SACU1TAB PO; +WARF5TAB71 PO; +WARF7.5T20 PO
[2017-10-20 11:00] VITALS: BP 111/76
[2017-10-20 13:30] VITALS: BP 116/78
[2017-10-20 15:59] LABS: Basophils # (auto) 0.1 uL; Basophils % (auto) 1.1 % (0.0-2.0); Eosinophils # (auto) 0 uL; Eosinophils % (auto) 0.8 % (0.0-7.0); Hematocrit 52.8 % (36.0-46.0); Hemoglobin 17.6 g/dL (12.2-16.2); Lymphocytes # (auto) 1.5 uL; Lymphocytes % (auto) 28.8 % (10.0-50.0); Mean Corpuscular Hemoglobin 33.1 pg (28.0-32.0); Mean Corpuscular Hgb Conc. 33.3 g/dL (32.0-36.0); Mean Corpuscular Volume 99.5 fL (80.0-100.0); Monocytes # (auto) 0.5 uL; Monocytes % (auto) 8.7 % (0.0-12.0); Neutrophils # (auto) 3.2 uL; Neutrophils % (auto) 60.6 % (37.0-80.0); Nucleated Red Blood Cells % 0.5 %; Platelet Count (auto) 277 10^3/uL (140-450); Red Blood Cells 5.31 10^6/uL (4.0-5.20); White Blood Cell 5.3 10^3/uL (4.4-10.8)
[2017-10-20 16:11] LABS: Calcium 9.6 mg/dL (8.5-10.1); Magnesium 2.1 mg/dL (1.6-2.6); Potassium 3.1 mmol/L (3.5-5.1)
[2017-10-20 16:14] LABS: Bilirubin, Total 2.4 mg/dL (0.2-1.0); Total Protein 8.1 g/dL (6.4-8.2)
== END | disposition home or self-care (01) ==
LOC: CHF HDHVI 10:59
PROVIDERS: ATTEND Internal Medicine Cardiovascular Disease
DX: Z32.01 Encounter for pregnancy test, result positive (principal); I11.0 Hypertensive heart disease with heart failure; I50.23 Acute on chronic systolic (congestive) heart failure; D51.9 Vitamin B12 deficiency anemia, unspecified; J44.9 Chronic obstructive pulmonary disease, unspecified; F41.9 Anxiety disorder, unspecified; F32.9 Major depressive disorder, single episode, unspecified; Z79.01 Long term (current) use of anticoagulants; Z87.891 Personal history of nicotine dependence; Z79.899 Other long term (current) drug therapy; Z95.810 Presence of automatic (implantable) cardiac defibrillator; Z86.711 Personal history of pulmonary embolism; Z87.440 Personal history of urinary (tract) infections
CPT/HCPCS: 36415; 80053; 82306; 82607; 83735; 83880; 84702; 85025; 93701; 96372; G0463; J3420

== ENCOUNTER → 2017-10-27 | Outpatient (CLI) | payer MEDICAID ==
[~2017-10-27] MED LIST changes: -BENZ100C97 PO; -CYANOCOBALAMIN (B-12) 1000 MCG/1 ML VIAL IM ONE; -CYANOCOBALAMIN (B-12) 1000 MCG/1 ML VIAL ONE; -MACI1TAB2 PO; -POM PO; -POTA8TAB2 PO; -SACU1TAB PO; -WARF5TAB71 PO; -WARF7.5T20 PO
[2017-10-27 10:00] VITALS: BP 109/62
[2017-10-27 10:50] VITALS: BP 99/66
== END | disposition home or self-care (01) ==
LOC: CHF HDHVI 10:11
PROVIDERS: ATTEND Internal Medicine Cardiovascular Disease
DX: I25.10 Atherosclerotic heart disease of native coronary artery without angina pectoris (principal); I11.0 Hypertensive heart disease with heart failure; I50.9 Heart failure, unspecified; I27.21 Secondary pulmonary arterial hypertension; J44.9 Chronic obstructive pulmonary disease, unspecified; Z87.891 Personal history of nicotine dependence; Z79.01 Long term (current) use of anticoagulants
CPT/HCPCS: 85610; 94618; G0463

== ENCOUNTER → 2017-11-10 | Outpatient (CLI) | payer MEDICAID ==
[~2017-11-10] MED LIST changes: +CYANOCOBALAMIN (B-12) 1000 MCG/1 ML VIAL IM ONE; +CYANOCOBALAMIN (B-12) 1000 MCG/1 ML VIAL ONE
[2017-11-10 10:35] VITALS: BP 113/110
[2017-11-10 13:30] VITALS: BP 113/84
[2017-11-10 16:26] LABS: Potassium 3.9 mmol/L (3.5-5.1)
== END | disposition home or self-care (01) ==
LOC: CHF HDHVI 10:38
PROVIDERS: ATTEND Internal Medicine Cardiovascular Disease
DX: I11.0 Hypertensive heart disease with heart failure (principal); I50.23 Acute on chronic systolic (congestive) heart failure; I27.21 Secondary pulmonary arterial hypertension; R07.9 Chest pain, unspecified; I25.10 Atherosclerotic heart disease of native coronary artery without angina pectoris; J44.9 Chronic obstructive pulmonary disease, unspecified; D51.9 Vitamin B12 deficiency anemia, unspecified; Z95.810 Presence of automatic (implantable) cardiac defibrillator; Z79.01 Long term (current) use of anticoagulants; Z87.891 Personal history of nicotine dependence
CPT/HCPCS: 36415; 71046; 82565; 83880; 84132; 84520; 85610; 96372; G0463; J3420

== ENCOUNTER → 2017-11-17 | Outpatient (CLI) | payer MEDICAID ==
[~2017-11-17] MED LIST changes: -CYANOCOBALAMIN (B-12) 1000 MCG/1 ML VIAL IM ONE; -CYANOCOBALAMIN (B-12) 1000 MCG/1 ML VIAL ONE
[2017-11-17 12:05] VITALS: BP 94/55
[2017-11-17 13:00] VITALS: BP 96/66
== END | disposition home or self-care (01) ==
LOC: CHF HDHVI 12:04
PROVIDERS: ATTEND Internal Medicine Cardiovascular Disease
DX: I27.21 Secondary pulmonary arterial hypertension (principal); J44.9 Chronic obstructive pulmonary disease, unspecified; I11.0 Hypertensive heart disease with heart failure; I50.9 Heart failure, unspecified; Z79.01 Long term (current) use of anticoagulants; Z87.891 Personal history of nicotine dependence
CPT/HCPCS: 85610; G0463

== ENCOUNTER → 2017-11-27 | Outpatient (CLI) | payer MEDICAID ==
[~2017-11-27] MED LIST changes: +BENZ100C97 PO; +MACI1TAB2 PO; +POM PO; +POTA8TAB2 PO; +SACU1TAB PO; +WARF5TAB71 PO; +WARF7.5T20 PO
== END | disposition home or self-care (01) ==
LOC: Rad HDHVI 13:10
PROVIDERS: ATTEND Internal Medicine Cardiovascular Disease
DX: I08.1 Rheumatic disorders of both mitral and tricuspid valves (principal); I11.0 Hypertensive heart disease with heart failure; I50.9 Heart failure, unspecified; J44.9 Chronic obstructive pulmonary disease, unspecified; Z87.891 Personal history of nicotine dependence; Z95.0 Presence of cardiac pacemaker
CPT/HCPCS: 93306

== ENCOUNTER → 2017-12-07 | Outpatient (CLI) | payer MEDICAID ==
[~2017-12-07] VITALS: Ht 30.5 cm; Wt 0.5 kg
[~2017-12-07] MED LIST changes: +CYANOCOBALAMIN (B-12) 1000 MCG/1 ML VIAL IM ONE; +CYANOCOBALAMIN (B-12) 1000 MCG/1 ML VIAL ONE; -LISI-275 PO; -POTA10TA34 PO; -TEMA30CA PO; -WARF5TAB PO
[2017-12-07 08:55] VITALS: BP 95/64
[2017-12-07 09:30] VITALS: BP 97/53
== END | disposition home or self-care (01) ==
LOC: CHF HDHVI 09:01
PROVIDERS: ATTEND Internal Medicine Cardiovascular Disease
DX: R53.83 Other fatigue (principal); R53.81 Other malaise; I27.21 Secondary pulmonary arterial hypertension; I11.0 Hypertensive heart disease with heart failure; I50.9 Heart failure, unspecified; D51.9 Vitamin B12 deficiency anemia, unspecified; F41.9 Anxiety disorder, unspecified; I42.0 Dilated cardiomyopathy; F32.9 Major depressive disorder, single episode, unspecified; J44.9 Chronic obstructive pulmonary disease, unspecified; Z79.01 Long term (current) use of anticoagulants; Z95.810 Presence of automatic (implantable) cardiac defibrillator; Z87.891 Personal history of nicotine dependence
CPT/HCPCS: 85610; 96372; G0463; J3420

== ENCOUNTER → 2017-12-22 | Outpatient (CLI) | payer MEDICAID ==
[~2017-12-22] MED LIST changes: -CYANOCOBALAMIN (B-12) 1000 MCG/1 ML VIAL IM ONE; -CYANOCOBALAMIN (B-12) 1000 MCG/1 ML VIAL ONE; +MAGNESIUM SULFATE 1GM/100ML 100 ML IV ONE; +MVI in SODIUM CHLORIDE 0.9% 1,000 ML IVB ONE; +MVI in SODIUM CHLORIDE 0.9% 1,010 ML ONE; +SPIR25TA8 PO; -SPIR25TA89 PO
[2017-12-22 15:20] VITALS: BP 105/62
== END | disposition home or self-care (01) ==
LOC: CHF HDHVI 12:57
PROVIDERS: ATTEND Internal Medicine Cardiovascular Disease
DX: I27.21 Secondary pulmonary arterial hypertension (principal); R00.2 Palpitations
CPT/HCPCS: 93005; 96365; 96366; 96367; G0463; J3411; J3475; 96368

== ENCOUNTER → 2018-01-05 | Outpatient (CLI) | payer MEDICAID ==
[~2018-01-05] MED LIST changes: -MAGNESIUM SULFATE 1GM/100ML 100 ML IV ONE; -MVI in SODIUM CHLORIDE 0.9% 1,000 ML IVB ONE; -MVI in SODIUM CHLORIDE 0.9% 1,010 ML ONE; -SPIR25TA8 PO; +SPIR25TA89 PO
[2018-01-05 09:40] VITALS: BP 105/63
[2018-01-05 11:05] VITALS: BP 108/69
== END | disposition home or self-care (01) ==
LOC: LAB 09:44
PROVIDERS: ATTEND Internal Medicine Cardiovascular Disease
DX: I27.21 Secondary pulmonary arterial hypertension (principal); I11.0 Hypertensive heart disease with heart failure; I50.9 Heart failure, unspecified; J44.9 Chronic obstructive pulmonary disease, unspecified; Z87.891 Personal history of nicotine dependence
CPT/HCPCS: 85610; G0463

== ENCOUNTER → 2018-01-19 | Outpatient (CLI) | payer MEDICAID ==
[2018-01-19 09:25] VITALS: BP 107/71
[2018-01-19 10:40] VITALS: BP 96/64
== END | disposition home or self-care (01) ==
LOC: CHF HDHVI 09:30
PROVIDERS: ATTEND Internal Medicine Cardiovascular Disease
DX: I25.10 Atherosclerotic heart disease of native coronary artery without angina pectoris (principal); I50.9 Heart failure, unspecified; I27.21 Secondary pulmonary arterial hypertension; R06.02 Shortness of breath
CPT/HCPCS: 85610; 93701; 94618; G0463

== ENCOUNTER → 2018-02-16 | Outpatient (CLI) | payer MEDICAID ==
[2018-02-15 11:15] VITALS: BP 124/91
[~2018-02-16] MED LIST changes: +CYANOCOBALAMIN (B-12) 1000 MCG/1 ML VIAL IM ONE; +CYANOCOBALAMIN (B-12) 1000 MCG/1 ML VIAL ONE; +SPIR25TA8 PO; -SPIR25TA89 PO
[2018-02-16 12:51] LABS: Basophils # (auto) 0.1 uL; Basophils % (auto) 1.3 % (0.0-2.0); Eosinophils # (auto) 0.1 uL; Eosinophils % (auto) 1.6 % (0.0-7.0); Hematocrit 40.5 % (36.0-46.0); Hemoglobin 13.9 g/dL (12.2-16.2); Lymphocytes # (auto) 1.7 uL; Lymphocytes % (auto) 29.4 % (10.0-50.0); Mean Corpuscular Hemoglobin 33.7 pg (28.0-32.0); Mean Corpuscular Hgb Conc. 34.3 g/dL (32.0-36.0); Mean Corpuscular Volume 98.2 fL (80.0-100.0); Monocytes # (auto) 0.5 uL; Monocytes % (auto) 9.1 % (0.0-12.0); Neutrophils # (auto) 3.3 uL; Neutrophils % (auto) 58.6 % (37.0-80.0); Platelet Count (auto) 271 10^3/uL (140-450); Red Blood Cells 4.12 10^6/uL (4.0-5.20); Red Cell Distribution Width 13.7 % (11.8-14.3); White Blood Cell 5.6 10^3/uL (4.4-10.8)
[2018-02-16 12:53] LABS: INR 1.04 (0.9-1.15); Partial Thromboplastin Time 28.5 sec (23.78-33.04); Prothrombin Time 11.1 sec (9.27-12.13)
[2018-02-16 13:20] LABS: BUN/Creatinine Ratio 25.3; Calcium 8.3 mg/dL (8.5-10.1); Magnesium 2.4 mg/dL (1.6-2.6); Potassium 3.6 mmol/L (3.5-5.1)
== END | disposition home or self-care (01) ==
LOC: CHF HDHVI 09:56
PROVIDERS: ATTEND Internal Medicine Cardiovascular Disease
DX: Z32.00 Encounter for pregnancy test, result unknown (principal); D64.9 Anemia, unspecified; R79.1 Abnormal coagulation profile; I25.10 Atherosclerotic heart disease of native coronary artery without angina pectoris; I11.0 Hypertensive heart disease with heart failure; I50.33 Acute on chronic diastolic (congestive) heart failure; J44.9 Chronic obstructive pulmonary disease, unspecified; Z87.891 Personal history of nicotine dependence
CPT/HCPCS: 36415; 80048; 83735; 84702; 85025; 85610; 85730; 96372; G0463; J3420

== ENCOUNTER → 2018-03-09 | Outpatient (CLI) | payer MEDICAID ==
[~2018-03-09] MED LIST changes: -CYANOCOBALAMIN (B-12) 1000 MCG/1 ML VIAL IM ONE; -CYANOCOBALAMIN (B-12) 1000 MCG/1 ML VIAL ONE; +FUROSEMIDE 20 MG/2 ML VIAL ONE; +FUROSEMIDE 40 MG/4 ML VIAL IV ONE; +FUROSEMIDE 40 MG/4 ML VIAL ONE; +POTASSIUM CHL 10 Meq TABLET PO ONE; +POTASSIUM CHL 20 Meq TABLET PO ONE
[2018-03-09 10:56] VITALS: BP 132/89
[2018-03-09 11:03] VITALS: BP 129/87
[2018-03-09 12:26] LABS: Potassium 3.5 mmol/L (3.5-5.1)
== END | disposition home or self-care (01) ==
LOC: CHF HDHVI 10:35
PROVIDERS: ATTEND Internal Medicine Cardiovascular Disease
DX: Z32.00 Encounter for pregnancy test, result unknown (principal); E87.6 Hypokalemia; R94.4 Abnormal results of kidney function studies; R79.1 Abnormal coagulation profile; D64.9 Anemia, unspecified; I25.10 Atherosclerotic heart disease of native coronary artery without angina pectoris; J44.9 Chronic obstructive pulmonary disease, unspecified; I11.0 Hypertensive heart disease with heart failure; I50.9 Heart failure, unspecified; R10.2 Pelvic and perineal pain; Z87.891 Personal history of nicotine dependence
CPT/HCPCS: 36415; 82565; 84132; 84520; 84702; 85610; 96374; G0463; J1940; 96375

== ENCOUNTER → 2018-04-06 | Outpatient (CLI) | payer MEDICAID ==
[~2018-04-06] MED LIST changes: +CYANOCOBALAMIN (B-12) 1000 MCG/1 ML VIAL IM ONE; +CYANOCOBALAMIN (B-12) 1000 MCG/1 ML VIAL ONE; -FUROSEMIDE 20 MG/2 ML VIAL ONE; -FUROSEMIDE 40 MG/4 ML VIAL IV ONE; -FUROSEMIDE 40 MG/4 ML VIAL ONE; -POTASSIUM CHL 10 Meq TABLET PO ONE; -POTASSIUM CHL 20 Meq TABLET PO ONE
[2018-04-06 10:00] VITALS: BP 102/65
[2018-04-06 12:00] VITALS: BP 102/72
[2018-04-06 16:02] LABS: Basophils # (auto) 0.1 uL; Eosinophils # (auto) 0.1 uL; Lymphocytes # (auto) 1.4 uL; Lymphocytes % (auto) 23.5 % (10.0-50.0); Monocytes # (auto) 0.5 uL; Monocytes % (auto) 8.2 % (0.0-12.0); Neutrophils # (auto) 3.9 uL; Nucleated Red Blood Cells % 0.2 %; Red Cell Distribution Width 13.8 % (11.8-14.3); White Blood Cell 5.9 10^3/uL (4.4-10.8)
[2018-04-06 16:07] LABS: Basophils % (auto) 1.3 % (0.0-2.0); Eosinophils % (auto) 0.9 % (0.0-7.0); Hematocrit 52.3 % (36.0-46.0); Hemoglobin 17.9 g/dL (12.2-16.2); Mean Corpuscular Hgb Conc. 34.3 g/dL (32.0-36.0); Mean Corpuscular Volume 99.2 fL (80.0-100.0); Neutrophils % (auto) 66.1 % (37.0-80.0); Platelet Count (auto) 299 10^3/uL (140-450); Red Blood Cells 5.27 10^6/uL (4.0-5.20)
[2018-04-06 16:15] LABS: Calcium 10.1 mg/dL (8.5-10.1)
[2018-04-06 16:17] LABS: BUN/Creatinine Ratio 21.1; Magnesium 2.3 mg/dL (1.6-2.6)
[2018-04-06 16:38] LABS: INR 0.95 (0.9-1.15); Partial Thromboplastin Time 25.6 sec (23.78-33.04); Prothrombin Time 10.2 sec (9.27-12.13)
== END | disposition home or self-care (01) ==
LOC: CHF HDHVI 09:41
PROVIDERS: ATTEND Internal Medicine Cardiovascular Disease
DX: I48.91 Unspecified atrial fibrillation (principal); I27.21 Secondary pulmonary arterial hypertension; I11.0 Hypertensive heart disease with heart failure; I50.9 Heart failure, unspecified; J44.9 Chronic obstructive pulmonary disease, unspecified; I25.10 Atherosclerotic heart disease of native coronary artery without angina pectoris; E83.40 Disorders of magnesium metabolism, unspecified; D64.9 Anemia, unspecified; R10.2 Pelvic and perineal pain; R79.1 Abnormal coagulation profile; Z32.00 Encounter for pregnancy test, result unknown; Z87.891 Personal history of nicotine dependence
CPT/HCPCS: 36415; 80048; 83735; 84702; 85025; 85610; 85730; 93701; 96372; G0463; J3420

== ENCOUNTER → 2018-04-20 | Outpatient (CLI) | payer MEDICAID ==
[~2018-04-20] MED LIST changes: -CYANOCOBALAMIN (B-12) 1000 MCG/1 ML VIAL IM ONE; -CYANOCOBALAMIN (B-12) 1000 MCG/1 ML VIAL ONE
[2018-04-20 13:20] VITALS: BP 129/75
[2018-04-20 14:15] VITALS: BP 109/73
[2018-04-20 16:11] LABS: Basophils # (auto) 0.1 uL; Basophils % (auto) 0.9 % (0.0-2.0); Eosinophils # (auto) 0.1 uL; Eosinophils % (auto) 1.7 % (0.0-7.0); Hematocrit 47.9 % (36.0-46.0); Hemoglobin 16.2 g/dL (12.2-16.2); Lymphocytes # (auto) 1.4 uL; Lymphocytes % (auto) 25.6 % (10.0-50.0); Mean Corpuscular Hemoglobin 33.4 pg (28.0-32.0); Mean Corpuscular Hgb Conc. 33.9 g/dL (32.0-36.0); Mean Corpuscular Volume 98.6 fL (80.0-100.0); Monocytes # (auto) 0.4 uL; Monocytes % (auto) 7.9 % (0.0-12.0); Neutrophils # (auto) 3.6 uL; Neutrophils % (auto) 63.9 % (37.0-80.0); Nucleated Red Blood Cells % 1.4 %; Platelet Count (auto) 300 10^3/uL (140-450); Red Blood Cells 4.86 10^6/uL (4.0-5.20); Red Cell Distribution Width 13.4 % (11.8-14.3); White Blood Cell 5.6 10^3/uL (4.4-10.8)
[2018-04-20 16:25] LABS: BUN/Creatinine Ratio 18.8; Calcium 9.3 mg/dL (8.5-10.1); Magnesium 2.3 mg/dL (1.6-2.6); Potassium 3.1 mmol/L (3.5-5.1)
== END | disposition home or self-care (01) ==
LOC: CHF HDHVI 13:23
PROVIDERS: ATTEND Internal Medicine Cardiovascular Disease
DX: I27.20 Pulmonary hypertension, unspecified (principal); E83.40 Disorders of magnesium metabolism, unspecified; D64.9 Anemia, unspecified; E03.9 Hypothyroidism, unspecified; I10 Essential (primary) hypertension
CPT/HCPCS: 36415; 80048; 83735; 84443; 85025; 85610; 94618; G0463

== ENCOUNTER → 2018-10-05 | Outpatient (CLI) | payer MEDICAID | END | disposition home or self-care (01) | LOC: Rad HDHVI 10:50 | PROVIDERS: ATTEND Internal Medicine | DX: I08.1 Rheumatic disorders of both mitral and tricuspid valves (principal); I11.0 Hypertensive heart disease with heart failure; I50.23 Acute on chronic systolic (congestive) heart failure | CPT/HCPCS: 93306 ==

== ENCOUNTER → 2018-11-09 | Outpatient (CLI) | payer MEDICAID ==
[~2018-11-09] MED LIST changes: +CYANOCOBALAMIN (B-12) 1000 MCG/1 ML VIAL IM ONE; +CYANOCOBALAMIN (B-12) 1000 MCG/1 ML VIAL ONE
[2018-11-09 12:30] VITALS: BP_SYST 109; BP_SYST 112; BP_DIAS 71; BP_DIAS 83
--- NOTE | 2018-11-09 12:30 | NUR ---
IN TO CLINIC FOR PAH FOLLOWUP. PT REPORTS FEELING WELL. COLOR PINK THROUGHOUT. AFFECT CHEERFUL AND PLEASANT. CARDIODYNAMICS AND 6 MWT DONE AND REVIEWED. MEDICATED FOR FATIGUE WITH VIT B12. Discharge Instructions See e-MAR for any mediations given with this visit. Patient education given on disease process. Patient verbalized understanding. Previous labs reviewed. Patient discharged in stable condition with after care instructions.
[2018-11-09 16:11] LABS: Albumin 3.7 g/dL (3.4-5.0); BUN/Creatinine Ratio 20.7; Bilirubin, Total 0.7 mg/dL (0.2-1.0); Calcium 8.8 mg/dL (8.5-10.1); Magnesium 1.9 mg/dL (1.6-2.6)
[2018-11-09 16:19] LABS: Potassium 2.6 mmol/L (3.5-5.1)
[2018-11-09 16:35] LABS: Basophils # (auto) 0.1 uL; Eosinophils # (auto) 0.1 uL; Eosinophils % (auto) 1.6 % (0.0-7.0); Hematocrit 47.7 % (36.0-46.0); Hemoglobin 16.4 g/dL (12.2-16.2); Lymphocytes # (auto) 1.3 uL; Lymphocytes % (auto) 21.1 % (10.0-50.0); Mean Corpuscular Hemoglobin 33.6 pg (28.0-32.0); Mean Corpuscular Hgb Conc. 34.5 g/dL (32.0-36.0); Mean Corpuscular Volume 97.6 fL (80.0-100.0); Monocytes # (auto) 0.5 uL; Monocytes % (auto) 7.8 % (0.0-12.0); Neutrophils # (auto) 4.1 uL; Neutrophils % (auto) 68.5 % (37.0-80.0); Platelet Count (auto) 252 10^3/uL (140-450); Red Blood Cells 4.89 10^6/uL (4.0-5.20); Red Cell Distribution Width 14.3 % (11.8-14.3); White Blood Cell 5.9 10^3/uL (4.4-10.8)
== END | disposition home or self-care (01) ==
LOC: CHF HDHVI 12:08
PROVIDERS: ATTEND Internal Medicine
DX: D64.9 Anemia, unspecified (principal); I10 Essential (primary) hypertension; E83.40 Disorders of magnesium metabolism, unspecified; R53.83 Other fatigue; I27.21 Secondary pulmonary arterial hypertension
CPT/HCPCS: 36415; 80053; 83735; 85025; 93701; 94618; 96372; G0463; J3420

== ENCOUNTER → 2018-11-16 | Outpatient (CLI) | payer MEDICAID ==
[~2018-11-16] MED LIST changes: -CYANOCOBALAMIN (B-12) 1000 MCG/1 ML VIAL IM ONE; -CYANOCOBALAMIN (B-12) 1000 MCG/1 ML VIAL ONE
[2018-11-16 09:00] VITALS: BP 117/78
--- NOTE | 2018-11-16 09:15 | NUR ---
IN TO CLINIC FOR FOLLOWUP FROM HYPOKALEMIA. PT EDUCATED ON HIGH POTASSIUM DIET. REPEAT BACK INSTRUCTIONS OBTAINED. DISCHARGED TO [facility] WITHOUT DISTRESS OR DISCOMFORT.
== END | disposition home or self-care (01) ==
LOC: CHF HDHVI 08:53
PROVIDERS: ATTEND Internal Medicine Cardiovascular Disease
DX: E87.6 Hypokalemia (principal)
CPT/HCPCS: 36415; 84132; G0463

== ENCOUNTER → 2018-12-13 | Outpatient (CLI) | payer MEDICAID ==
[~2018-12-13] MED LIST changes: +CYANOCOBALAMIN (B-12) 1000 MCG/1 ML VIAL IM ONE; +CYANOCOBALAMIN (B-12) 1000 MCG/1 ML VIAL ONE
[2018-12-13 09:45] VITALS: BP 105/72
[2018-12-13 10:54] VITALS: BP 93/57
--- NOTE | 2018-12-13 10:54 | NUR ---
[facility] Discharge Instructions See e-MAR for any mediations given with this visit. Patient education given on disease process. Patient verbalized understanding. Previous labs reviewed. Patient discharged in stable condition with after care instructions and follow up appointment. NOTE B12 IM L DELTOID ADMIN BY PREET RAE. CARDIODYNAMICS PERFORMED. PATIENT ON UPTRAVI 200MCG BID, NO DOSAGE CHANGE.
[2018-12-13 12:30] LABS: Basophils # (auto) 0 uL; Basophils % (auto) 0.9 % (0.0-2.0); Eosinophils # (auto) 0.1 uL; Eosinophils % (auto) 2.1 % (0.0-7.0); Hemoglobin 15.9 g/dL (12.2-16.2); Lymphocytes # (auto) 1.5 uL; Lymphocytes % (auto) 26.5 % (10.0-50.0); Mean Corpuscular Hemoglobin 32.9 pg (28.0-32.0); Mean Corpuscular Hgb Conc. 33.7 g/dL (32.0-36.0); Mean Corpuscular Volume 97.5 fL (80.0-100.0); Monocytes # (auto) 0.5 uL; Monocytes % (auto) 8.6 % (0.0-12.0); Neutrophils # (auto) 3.5 uL; Neutrophils % (auto) 61.9 % (37.0-80.0); Nucleated Red Blood Cells % 0.1 %; Platelet Count (auto) 247 10^3/uL (140-450); Red Blood Cells 4.82 10^6/uL (4.0-5.20); Red Cell Distribution Width 13.6 % (11.8-14.3); White Blood Cell 5.6 10^3/uL (4.4-10.8)
[2018-12-13 12:35] LABS: Potassium 3.5 mmol/L (3.5-5.1)
[2018-12-13 12:49] LABS: Albumin 3.9 g/dL (3.4-5.0); BUN/Creatinine Ratio 16.9; Bilirubin, Total 1.1 mg/dL (0.2-1.0); Calcium 8.5 mg/dL (8.5-10.1); Magnesium 2.1 mg/dL (1.6-2.6); Total Protein 7.4 g/dL (6.4-8.2)
== END | disposition home or self-care (01) ==
LOC: CHF HDHVI 09:45
PROVIDERS: ATTEND Internal Medicine Cardiovascular Disease
DX: I27.21 Secondary pulmonary arterial hypertension (principal); I11.0 Hypertensive heart disease with heart failure; I50.23 Acute on chronic systolic (congestive) heart failure; E83.40 Disorders of magnesium metabolism, unspecified; D64.9 Anemia, unspecified; R53.83 Other fatigue; E78.5 Hyperlipidemia, unspecified
CPT/HCPCS: 36415; 80053; 83735; 83880; 85025; 85610; 93701; 96372; G0463; J3420

== ENCOUNTER → 2019-01-24 | Outpatient (CLI) | payer MEDICAID ==
[~2019-01-24] MED LIST changes: +KETOROLAC TROMETH 60MG/2ML VIAL IM ONE; +KETOROLAC TROMETH 60MG/2ML VIAL ONE; +POTASSIUM CHL 10 Meq TABLET PO ONE; +POTASSIUM CHL 20 Meq TABLET PO ONE
[2019-01-24 10:45] VITALS: BP 118/73
--- NOTE | 2019-01-24 10:45 | NUR ---
[facility] PT AT [facility] F/U PT WEIGHT UP 7 LBS L FOOT NUMBNESS , RECNET PALPITATIONS. VS WNL TODAY PT CURRENTLY ON ADEMPAS 2MG QID , UPTRAVI 200 MG PO BID AND ENTRESTO OPSUMIT 10MG Q DAY
[2019-01-24 12:45] VITALS: BP 118/73
--- NOTE | 2019-01-24 12:46 | NUR ---
Discharge Instructions See e-MAR for any mediations given with this visit. Patient education given on disease process. Patient verbalized understanding. Previous labs reviewed. Patient discharged in stable condition with after care instructions and follow up appointment. MEDICATIONS TORADOL IM LEFT GLUTE POTASSIUM PO X 1 VITAMIN B12 IM R DELTOID
[2019-01-24 16:02] LABS: Calcium 9.3 mg/dL (8.5-10.1); Magnesium 2.2 mg/dL (1.6-2.6)
[2019-01-24 16:05] LABS: BUN/Creatinine Ratio 23.4
[2019-01-24 16:09] LABS: Potassium 2.9 mmol/L (3.5-5.1)
--- NOTE | 2019-02-02 14:45 | NUR ---
LATE ENTRY FOR 01/24/19 CARDIODYNAMICS PERFORMED AND REVIEWED WITH PATIENT BY POP DASILVA.
== END | disposition home or self-care (01) ==
LOC: CHF HDHVI 10:19
PROVIDERS: ATTEND Internal Medicine Cardiovascular Disease
DX: I11.0 Hypertensive heart disease with heart failure (principal); I50.23 Acute on chronic systolic (congestive) heart failure; E83.40 Disorders of magnesium metabolism, unspecified; I27.21 Secondary pulmonary arterial hypertension; I48.91 Unspecified atrial fibrillation; M79.672 Pain in left foot; R53.83 Other fatigue; E78.5 Hyperlipidemia, unspecified; Z79.899 Other long term (current) drug therapy
CPT/HCPCS: 36415; 80048; 83735; 84702; 85610; 93701; 96372; G0463; J1885; J3420

== ENCOUNTER → 2019-02-15 | Outpatient (CLI) | payer MEDICAID ==
[~2019-02-15] MED LIST changes: -CYANOCOBALAMIN (B-12) 1000 MCG/1 ML VIAL IM ONE; -CYANOCOBALAMIN (B-12) 1000 MCG/1 ML VIAL ONE; -KETOROLAC TROMETH 60MG/2ML VIAL IM ONE; -KETOROLAC TROMETH 60MG/2ML VIAL ONE; -POTASSIUM CHL 10 Meq TABLET PO ONE; -POTASSIUM CHL 20 Meq TABLET PO ONE
[2019-02-15 12:32] VITALS: BP 120/75
[2019-02-15 12:56] VITALS: BP 100/59
--- NOTE | 2019-02-15 12:56 | NUR ---
[facility] Discharge Instructions See e-MAR for any mediations given with this visit. Patient education given on disease process. Patient verbalized understanding. Previous labs reviewed. Patient discharged in stable condition with after care instructions and follow up appointment. NOTE CARDIODYNAMICS PERFORMED BY REG AND REVIEWED WITH PATIENT BY SHERIN DASILVA. PATIENT STARTED ON AMIODARONE BY DR MILLER WILL INCREASE UPTRAVI ON NEXT REFILL TO 400MG BID.
[2019-02-15 16:02] LABS: Basophils # (auto) 0.1 uL; Basophils % (auto) 0.9 % (0.0-2.0); Eosinophils # (auto) 0.1 uL; Hematocrit 39.7 % (36.0-46.0); Hemoglobin 13.9 g/dL (12.2-16.2); Lymphocytes # (auto) 1.7 uL; Lymphocytes % (auto) 26.6 % (10.0-50.0); Mean Corpuscular Hemoglobin 33.4 pg (28.0-32.0); Mean Corpuscular Hgb Conc. 35.1 g/dL (32.0-36.0); Monocytes # (auto) 0.6 uL; Monocytes % (auto) 8.6 % (0.0-12.0); Neutrophils # (auto) 4.1 uL; Neutrophils % (auto) 61.9 % (37.0-80.0); Nucleated Red Blood Cells % 0.1 %; Platelet Count (auto) 321 10^3/uL (140-450); Red Blood Cells 4.18 10^6/uL (4.0-5.20); Red Cell Distribution Width 13.3 % (11.8-14.3); White Blood Cell 6.6 10^3/uL (4.4-10.8)
[2019-02-15 16:04] LABS: Urine Blood Negative /uL (Negative); Urine Specific Gravity 1.024 (1.001-1.035)
[2019-02-15 16:07] LABS: BUN/Creatinine Ratio 22.4; Calcium 8.8 mg/dL (8.5-10.1); Potassium 3.2 mmol/L (3.5-5.1)
[2019-02-15 16:11] LABS: Bilirubin, Total 0.6 mg/dL (0.2-1.0); Total Protein 7.5 g/dL (6.4-8.2)
[2019-02-15 16:25] LABS: Free T4 (Free Thyroxine) 0.99 ng/dL (0.89-1.76)
== END | disposition home or self-care (01) ==
LOC: CHF HDHVI 12:11
PROVIDERS: ATTEND Internal Medicine Cardiovascular Disease
DX: Z00.00 Encounter for general adult medical examination without abnormal findings (principal); E03.9 Hypothyroidism, unspecified; K90.9 Intestinal malabsorption, unspecified; N39.0 Urinary tract infection, site not specified; D51.9 Vitamin B12 deficiency anemia, unspecified; I48.91 Unspecified atrial fibrillation; I27.21 Secondary pulmonary arterial hypertension; I11.0 Hypertensive heart disease with heart failure; I50.9 Heart failure, unspecified; Z79.899 Other long term (current) drug therapy
CPT/HCPCS: 36415; 80053; 80061; 81003; 82306; 82607; 83036; 84439; 84443; 85025; 93701; G0463

== ENCOUNTER → 2019-03-01 | Outpatient (CLI) | payer MEDICAID ==
[2019-03-01 09:00] VITALS: BP 119/72
--- NOTE | 2019-03-01 09:00 | NUR ---
CHF PT AT THE CLINIC FOR PAH MONTHLY FOLLOW UP. A/O X 3 0 DISTRESS VSS. PT IMPROVING EVERY VISIT,
[2019-03-01 09:47] VITALS: BP 124/81
--- NOTE | 2019-03-01 09:47 | NUR ---
Discharge Instructions See e-MAR for any mediations given with this visit. Patient education given on disease process. Patient verbalized understanding. Previous labs reviewed. Patient discharged in stable condition with after care instructions and follow up appointment. 6 MIN WALK TEST COMPLETE, PT IMPROVED INCREASED BY 90 METERS 0 DISTRESS
== END | disposition home or self-care (01) ==
LOC: CHF HDHVI 09:32
PROVIDERS: ATTEND Internal Medicine Cardiovascular Disease
DX: I27.21 Secondary pulmonary arterial hypertension (principal); R06.02 Shortness of breath; R53.83 Other fatigue
CPT/HCPCS: 94618; G0463

== ENCOUNTER → 2019-04-26 | Outpatient (CLI) | payer MEDICAID ==
[~2019-04-26] MED LIST changes: +CYANOCOBALAMIN (B-12) 1000 MCG/1 ML VIAL IM ONE; +CYANOCOBALAMIN (B-12) 1000 MCG/1 ML VIAL ONE
[2019-04-26 09:00] VITALS: BP 117/68
[2019-04-26 10:00] VITALS: BP 110/70
--- NOTE | 2019-04-26 10:00 | NUR ---
Discharge Instructions See e-MAR for any mediations given with this visit. Patient education given on disease process. Patient verbalized understanding. Previous labs reviewed. Patient discharged in stable condition with after care instructions and follow up appointment. MEDICATIONS VITAMIN B12 IM PROVIDED PT WITH VITAMIN D SPRAY AND INSTRUCTED ON ITS USE. PT DEMONSTRATED USE. VITAMIN D LEVEL 17.74 FROM 02/24 CARDIODYNAMICS DONE BY SALENA RN EXPLAINED BY MYSELF AND PATIENT VERBALIZED UNDERSTANDING
[2019-04-26 12:53] LABS: Albumin 4.2 g/dL (3.4-5.0); BUN/Creatinine Ratio 14.5; Bilirubin, Total 0.3 mg/dL (0.2-1.0); Calcium 9.7 mg/dL (8.5-10.1); Magnesium 2.1 mg/dL (1.6-2.6); Total Protein 7.5 g/dL (6.4-8.2)
[2019-04-26 13:02] LABS: Basophils # (auto) 0.1 uL; Basophils % (auto) 1.1 % (0.0-2.0); Eosinophils # (auto) 0.1 uL; Eosinophils % (auto) 2.5 % (0.0-7.0); Hematocrit 41.1 % (36.0-46.0); Hemoglobin 14.4 g/dL (12.2-16.2); Lymphocytes # (auto) 1.5 uL; Lymphocytes % (auto) 28.1 % (10.0-50.0); Mean Corpuscular Volume 94.4 fL (80.0-100.0); Monocytes # (auto) 0.4 uL; Monocytes % (auto) 7.1 % (0.0-12.0); Neutrophils # (auto) 3.2 uL; Neutrophils % (auto) 61.2 % (37.0-80.0); Nucleated Red Blood Cells % 0.2 %; Platelet Count (auto) 348 10^3/uL (140-450); Red Blood Cells 4.35 10^6/uL (4.0-5.20); Red Cell Distribution Width 13.3 % (11.8-14.3); White Blood Cell 5.3 10^3/uL (4.4-10.8)
[2019-04-26 14:09] LABS: Potassium 2.9 mmol/L (3.5-5.1)
== END | disposition home or self-care (01) ==
LOC: CHF HDHVI 09:19
PROVIDERS: ATTEND Internal Medicine Cardiovascular Disease
DX: D64.9 Anemia, unspecified (principal); E83.40 Disorders of magnesium metabolism, unspecified; I11.0 Hypertensive heart disease with heart failure; I50.9 Heart failure, unspecified; R53.83 Other fatigue; I73.9 Peripheral vascular disease, unspecified
CPT/HCPCS: 36415; 80053; 83735; 85025; 93701; 96372; G0463; J3420

== ENCOUNTER → 2019-05-09 | Outpatient (CLI) | payer MEDICAID ==
[~2019-05-09] MED LIST changes: -CYANOCOBALAMIN (B-12) 1000 MCG/1 ML VIAL IM ONE; -CYANOCOBALAMIN (B-12) 1000 MCG/1 ML VIAL ONE
== END | disposition home or self-care (01) ==
LOC: Rad HDHVI 12:56
PROVIDERS: ATTEND Internal Medicine Cardiovascular Disease
DX: I08.1 Rheumatic disorders of both mitral and tricuspid valves (principal); I50.9 Heart failure, unspecified; I27.0 Primary pulmonary hypertension; I42.9 Cardiomyopathy, unspecified
CPT/HCPCS: 93306

== ENCOUNTER 2020-05-13 19:47 | Emergency (ER) | payer MEDICAID ==
[~2020-05-13] VITALS: Ht 170.2 cm; Wt 83.5 kg
[2020-05-13 20:15] VITALS: BP 109/83
[2020-05-13 22:17] LABS: Basophils # (auto) 0.1 10 ^3/uL (0-0.2); Basophils % (auto) 1.4 % (0.0-2.0); Eosinophils # (auto) 0.1 10 ^3/uL (0-0.8); Eosinophils % (auto) 1.1 % (0.0-7.0); Hemoglobin 14.3 g/dL (12.2-16.2); Lymphocytes % (auto) 32.6 % (10.0-50.0); Mean Corpuscular Hemoglobin 31.8 pg (28.0-32.0); Mean Corpuscular Hgb Conc. 32.4 g/dL (32.0-36.0); Mean Corpuscular Volume 97.9 fL (80.0-100.0); Monocytes # (auto) 0.5 10 ^3/uL (0-1.3); Neutrophils # (auto) 3.4 10 ^3/uL (1.6-8.6); Neutrophils % (auto) 55.9 % (37.0-80.0); Nucleated Red Blood Cells % 0.2 %; Platelet Count (auto) 294 10^3/uL (140-450); Red Cell Distribution Width 15.7 % (11.8-14.3); White Blood Cell 6.1 10^3/uL (4.4-10.8)
[2020-05-13 22:23] LABS: Albumin 3.6 g/dL (3.4-5.0); Calcium 8.9 mg/dL (8.5-10.1); Potassium 3.5 mmol/L (3.5-5.1)
[2020-05-13 22:30] LABS: BUN/Creatinine Ratio 21.4; Bilirubin, Total 2.4 mg/dL (0.2-1.0)
== END 2020-05-14 04:09 | disposition left against medical advice (07) ==
LOC: ER 19:49
DX: T82.110A Breakdown (mechanical) of cardiac electrode, initial encounter (principal); I21.4 Non-ST elevation (NSTEMI) myocardial infarction; I42.8 Other cardiomyopathies; E03.9 Hypothyroidism, unspecified; R94.5 Abnormal results of liver function studies; F15.10 Other stimulant abuse, uncomplicated; I11.0 Hypertensive heart disease with heart failure; I50.33 Acute on chronic diastolic (congestive) heart failure; F17.210 Nicotine dependence, cigarettes, uncomplicated; J44.9 Chronic obstructive pulmonary disease, unspecified; Z79.899 Other long term (current) drug therapy; Z79.01 Long term (current) use of anticoagulants
CPT/HCPCS: 36415; 71045; 80053; 80320; 83880; 84443; 84484; 85025; 93005; 99291

== ENCOUNTER 2021-03-18 15:29 | Emergency (ER) | payer MEDICAID ==
[~2021-03-18] VITALS: Ht 170.2 cm; Wt 74.4 kg
[~2021-03-18 15:29] MED LIST changes: +METO2.5T PO; -METO2.5T11 PO; +RIOC1TAB14 PO; -RIOC1TAB7 PO
[2021-03-18 15:54] VITALS: BP 97/69
[2021-03-18 17:23] LABS: Hematocrit 54.7 % (36.0-46.0); Hemoglobin 16.8 g/dL (12.2-16.2); Mean Corpuscular Hemoglobin 30.8 pg (28.0-32.0); Mean Corpuscular Hgb Conc. 30.8 g/dL (32.0-36.0); Red Blood Cells 5.47 10^6/uL (4.0-5.20); Red Cell Distribution Width 18.9 % (11.8-14.3)
[2021-03-18 18:08] LABS: Band Neutrophils % (manual) 0; Basophils % (manual) 0 (0.0-2.0); Blast Cells 0; Metamyelocytes % 0; Myelocytes % 0; Promyelocytes % 0; Reactive Lymphocytes 0
[2021-03-18 20:41] LABS: Eosinophils % (manual) 2 (0-7); Lymphocytes % (manual) 25 (10.0-50.0); Monocytes % (manual) 2 (0-12)
== END 2021-03-18 22:33 | disposition left against medical advice (07) ==
LOC: ER 15:29
DX: R53.83 Other fatigue (principal); R53.1 Weakness; R05.9 Cough, unspecified; R07.89 Other chest pain; R19.7 Diarrhea, unspecified; R11.0 Nausea; I11.0 Hypertensive heart disease with heart failure; I50.9 Heart failure, unspecified; J44.9 Chronic obstructive pulmonary disease, unspecified; F17.210 Nicotine dependence, cigarettes, uncomplicated; Z95.0 Presence of cardiac pacemaker; Z79.899 Other long term (current) drug therapy; Z79.01 Long term (current) use of anticoagulants
CPT/HCPCS: 36415; 71045; 85007; 85027; 93005